=== PATIENT | female | born 1965 | race Caucasian/White ===

== ENCOUNTER 2020-03-08 14:29 | Emergency (ER) | payer OTHER ==
--- NOTE | 2020-03-08 14:56 | ED ---
Lower Extremity Injury HPI - General Chief Complaint: Extremity Injury, Lower Stated Complaint: Poss blood clot,left leg Time Seen by Provider: 03/08/20 14:40 Source: patient Mode of arrival: ambulatory Limitations: no limitations - History of Present Illness Initial Comments: 54-year-old female patient presents to the emergency department today for eval uation of left lower leg and ankle pain and swelling. Patient states a few days ago she was pushing something heavy when she felt something pop in the back of her calf. States she did have some discomfort intermittently with this but it wasn't bothering her too much. Patient states over the last 24-48 hours she has developed increased pain and swelling over the lateral aspect of her left foot s he is also developed bruising over the porras. She denies any use of anticoagulant or antiplatelet medications. Denies history of DVT. She states the pain has been so bad at night that she is unable to sleep. Patient denies any headache, neck pain, back pain, chest pain, shortness of breath, dizziness, weakness, abdominal pain, nausea, vomiting, or difficulties with bowel movements or urination. - Related Data Previous Rx's Medication Instructions Recorded Ibuprofen [Motrin] 600 mg PO Q8HR PRN #30 tab 03/08/20 Allergies Allergy/AdvReac Type Severity Reaction Status Date / Time No Known Allergies Allergy Verified 03/08/20 14:31 Review of Systems ROS Statement: Those systems with pertinent positive or pertinent negative responses have been documented in the HPI. ROS Other: All systems not noted in ROS Statement are negative. Past Medical History Past Medical History: Diabetes Mellitus, Hyperlipidemia, Hypertension History of Any Multi-Drug Resistant Organisms: None Reported Past Surgical History: No Surgical Hx Reported Past Psychological History: Anxiety Smoking Status: Current every day smoker Past Alcohol Use History: None Reported Past Drug Use History: None Reported General Exam Limitations: no limitations General appearance: alert, in no apparent distress, other (Physical well- developed, well-nourished adult female patient in no acute distress. Vital signs upon presentation are temperature 97.9F, pulse 92, respirations 18, blood pressure 111/65, pulse ox 99% on room air.) Respiratory exam: Present: normal lung sounds bilaterally. Absent: respiratory distress, wheezes, rales, rhonchi, stridor Cardiovascular Exam: Present: regular rate, normal rhythm, normal heart sounds. Absent: systolic murmur, diastolic murmur, rubs, gallop, clicks Extremities exam: Present: full ROM, normal capillary refill, other (There is ecchymosis noted over the left lower leg. Tenderness and soft tissue swelling noted over the left lateral malleolus. There is full range of motion at the ankle joint. Negative Bentley test. Skins otherwise pink, warm, dry. Cap refills less than 3 seconds. Pedal pulses 2+.). Absent: normal inspection, tenderness, pedal edema, joint swelling, calf tenderness Neurological exam: Present: alert, oriented X3, CN II-XII intact Psychiatric exam: Present: normal affect, normal mood Skin exam: Present: warm, dry, intact, normal color. Absent: rash Course Vital Signs 03/08/20 14:32 Temperature 97.9 F Pulse Rate 92 Respiratory 18 Rate Blood Pressure 111/65 O2 Sat by Pulse 99 Oximetry Medical Decision Making - Medical Decision Making 54-year-old female patient presents to the emergency department today for evaluation of left calf and leg pain. Physical examination did reveal ecchymosis noted over the anterior left porras, soft tissue swelling surrounding the ankle. Neurovascular status intact. Pulses are intact. Ultrasound was obtained and showed no evidence for DVT but there was evidence for intramuscular hematoma. X-ray was negative for acute fracture. I did discuss findings results with the patient. She'll be placed in an Ankit wrap. She is instructed to apply ice and elevate the leg. She is given ibuprofen for pain control. She is instructed follow with orthopedics if her symptoms do not improve. She is instructed to follow-up with her primary care physician for recheck in 1-2 days. Return parameters were discussed in detail. She verbalizes understanding and agrees with this plan. - Radiology Data Radiology results: report reviewed, image reviewed 3 views of left ankle obtained. Report is reviewed in its entirety. Impression by Dr. Pace shows mild soft tissue swelling. No fracture. Ultrasound of the left lower extremity is obtained. Report was reviewed in its entirety. Impression by Dr. Pace shows no evidence of deep vein thrombosis in the left leg. Is a complex elongated fluid collection the calf consistent with intramuscular hematoma. Disposition Clinical Impression: Intramuscular hematoma, Leg pain Disposition: HOME SELF-CARE Condition: Good Instructions (If sedation given, give patient instructions): Hematoma (ED) Additional Instructions: Use Ankit wrap for compression and support. Take medication as needed for pain control. Follow-up with orthopedic brace maker for further evaluation in 1-2 days. Return to the emergency department immediately for any new, worsening, or concerning symptoms. Prescriptions: Ibuprofen [Motrin] 600 mg PO Q8HR PRN #30 tab PRN Reason: Pain Is patient prescribed a controlled substance at d/c from ED?: No Referrals: Iglesia Bray DO [Primary Care Provider] - 1-2 days Shen Beasley DO [Doctor of Osteopathic Medicine] - 1-2 days Time of Disposition: 15:57
--- NOTE | 2020-03-08 15:23 | XR ---
EXAMINATION TYPE: XR ankle complete LT DATE OF EXAM: 03/08/2020 COMPARISON: NONE HISTORY: Pain TECHNIQUE: 3 views FINDINGS: Ankle mortise is anatomic. I see no fracture nor dislocation. There is mild soft tissue swe lling over the medial malleolus. There is no evidence of focal bone destruction. IMPRESSION: Mild soft tissue swelling. No fracture.
--- NOTE | 2020-03-08 15:55 | US ---
EXAMINATION TYPE: US venous doppler duplex LE DATE OF EXAM: 03/08/2020 3:31 PM COMPARISON: NONE CLINICAL HISTORY: Left leg pain and swelling. pain after injury left calf SIDE PERFORMED: Left TECHNIQUE: The lower extremity deep venous system is examined utilizing real time linear array sonog valentine with graded compression, doppler sonography and color-flow sonography. VESSELS IMAGED: Common Femoral Vein Deep Femoral Vein Greater Saphenous Vein * Femoral Vein Popliteal Vein Small Saphenous Vein * Proximal Calf Veins (* superficial vessels) Left Leg: Negative for DVT At the area of the patient's pain, left calf, there is a complex fluid collection measuring 6.7 x 0.9 x 4.3 cm IMPRESSION: No evidence of deep vein thrombosis in the left leg. There is complex elongated fluid col lection in the calf consistent with intramuscular hematoma.
[2020-03-08] MEDS ORDERED: ACET/COD 300 MG/30 MG STARTER PACK 6 TAB BTL PO STA (15:57)
[2020-03-08 16:18] VITALS: BP 110/65; PULSE 78; RESP 20; TEMP 98.1
== END 2020-03-08 16:18 | disposition home or self-care (01) ==
LOC: EC 14:29
DX: S80.12XA Contusion of left lower leg, initial encounter (principal); E11.9 Type 2 diabetes mellitus without complications; I10 Essential (primary) hypertension; F17.200 Nicotine dependence, unspecified, uncomplicated; X50.9XXA Other and unspecified overexertion or strenuous movements or postures, initial encounter
CPT/HCPCS: 99284

== ENCOUNTER → 2020-11-06 | Outpatient (CLI) | payer OTHER ==
--- NOTE | 2020-11-06 09:32 | MR ---
EXAMINATION TYPE: MR knee RT wo con DATE OF EXAM: 11/06/2020 COMPARISON: X-ray 03/17/2020 HISTORY: Pain in right knee TECHNIQUE: Multiplanar, multisequence imaging of the right knee is performed without IV contrast. FINDINGS: MEDIAL MENISCUS: There is abnormal signal involving the posterior horn of the medial meniscus compati ble with a complex tear. Is abnormal fluid signal surrounding the peripheral margin of the meniscus a s well as the MCL. LATERAL MENISCUS: Linear signal in the posterior horn suggestive of simple linear tear. CRUCIATE LIGAMENTS: The anterior and posterior cruciate ligaments are intact and unremarkable. COLLATERAL LIGAMENTS: Lateral collateral ligament is intact. There is fluid surrounding the medial co llateral ligament with mild irregularity involving the medial collateral ligament. EXTENSOR MECHANISM: Visualized quadriceps and patellar tendons are intact. EFFUSION: No significant suprapatellar joint effusion. POPLITEAL CYST: No popliteal/park cyst. TRICOMPARTMENT SPACES: Mild narrowing of the medial compartment of knee joint and patellofemoral join t. BONE MARROW SIGNAL: No focal abnormal marrow signal is appreciated. IMPRESSION: 1. Complex tear posterior horn medial meniscus with grade 2 MCL sprain with partial tear. Meniscal ca psular separation in the differential diagnosis. 2. Simple linear tear posterior horn lateral meniscus
== END | disposition home or self-care (01) ==
LOC: RADMRIMAIN 08:24
PROVIDERS: ATTEND Orthopaedic Surgery
DX: M23.321 Other meniscus derangements, posterior horn of medial meniscus, right knee (principal); M23.351 Other meniscus derangements, posterior horn of lateral meniscus, right knee

== ENCOUNTER 2022-06-30 13:00 | Emergency (ER) | payer OTHER ==
[2022-06-30] MEDS ORDERED: methylPREDNISolone SOD SUCCI 125 MG/2 ML VIAL IM ONE (13:45)
[2022-06-30] MEDS ORDERED: KETOROLAC 15 MG/ML 1 ML VIAL IM STA (13:45)
--- NOTE | 2022-06-30 13:46 | ED ---
General Adult HPI - General Chief complaint: Extremity Injury, Lower Stated complaint: Right knee injury Time Seen by Provider: 06/30/22 13:28 Source: patient, RN notes reviewed Mode of arrival: ambulatory Limitations: physical limitation - History of Present Illness Initial comments: 57 female with no significant past medical history presents the emergency department with a chief complaint of right knee pain. She reports that she injured it somehow approximately 1 year and a half ago. Today she reports pain and swelling to the area. She denies any numbness, tingling, no weakness in the extremity. She's been taking Tylenol 600s with mild relief of her symptoms. - Related Data Previous Rx's Medication Instructions Recorded Ibuprofen [Motrin] 600 mg PO Q8HR PRN #30 tab 03/08/20 Ketorolac [Toradol] 10 mg PO Q8HR #15 tab 06/30/22 Allergies Allergy/AdvReac Type Severity Reaction Status Date / Time No Known Allergies Allergy Verified 06/30/22 13:25 Review of Systems ROS Statement: Those systems with pertinent positive or pertinent negative responses have been documented in the HPI. ROS Other: All systems not noted in ROS Statement are negative. Past Medical History Past Medical History: Diabetes Mellitus, Hyperlipidemia, Hypertension History of Any Multi-Drug Resistant Organisms: None Reported Past Surgical History: No Surgical Hx Reported Past Psychological History: Anxiety, Depression Smoking Status: Current every day smoker Past Alcohol Use History: None Reported Past Drug Use History: None Reported General Exam Limitations: physical limitation General appearance: alert, in no apparent distress Head exam: Present: atraumatic, normocephalic, normal inspection Eye exam: Present: normal appearance, PERRL, EOMI. Absent: scleral icterus, conjunctival injection, periorbital swelling ENT exam: Present: normal exam, mucous membranes moist Neck exam: Present: normal inspection. Absent: tenderness, meningismus, lymphadenopathy Respiratory exam: Present: normal lung sounds bilaterally. Absent: respiratory distress, wheezes, rales, rhonchi, stridor Cardiovascular Exam: Present: regular rate, normal rhythm, normal heart sounds. Absent: systolic murmur, diastolic murmur, rubs, gallop, clicks GI/Abdominal exam: Present: soft, normal bowel sounds. Absent: distended, tenderness, guarding, rebound, rigid Extremities exam: Present: normal inspection, full ROM, normal capillary refill. Absent: tenderness, pedal edema, joint swelling, calf tenderness Back exam: Present: normal inspection Neurological exam: Present: alert, oriented X3, CN II-XII intact Psychiatric exam: Present: normal affect, normal mood Skin exam: Present: warm, dry, intact, normal color. Absent: rash Course Vital Signs 06/30/22 06/30/22 13:22 14:56 Temperature 98.4 F 98.2 F Pulse Rate 78 86 Respiratory 18 16 Rate Blood Pressure 140/82 146/89 O2 Sat by Pulse 97 99 Oximetry Medical Decision Making - Medical Decision Making Was pt. sent in by a medical professional or institution (, INES, POWDER CUTTING OPERATOR, urgent care, hospital, or custodial...) When possible be specific @ -ow li Did you speak to anyone other than the patient for history (EMS, parent, family, police, friend...)? What history was obtained from this source @ -[No] Did you review nursing and triage notes (agree or disagree)? Why? @ -[I reviewed and agree with nursing and triage notes] Were old charts reviewed (outside hosp., previous admission, EMS record, old EKG, old radiological studies, urgent care reports/EKG's, custodial records)? Report findings @ -[No old charts were reviewed] Differential Diagnosis (chest pain, altered mental status, abdominal pain women, abdominal pain men, vaginal bleeding, weakness, fever, dyspnea, syncope, headache, dizziness, GI bleed, back pain, seizure, CVA, palpatations, mental health, musculoskeletal)? @ -[not applicable] EKG interpreted by me (3pts min.). @ -[As above] X-rays interpreted by me (1pt min.). @ -Right knee x-ray negative for any acute fracture or dislocation CT interpreted by me (1pt min.). @ -[None done] U/S interpreted by me (1pt. min.). @ -[None done] What testing was considered but not performed or refused? (CT, X-rays, U/S, labs)? Why? @ -[None] What meds were considered but not given or refused? Why? @ -[None] Did you discuss the management of the patient with other professionals (professionals i.e. , INES, POWDER CUTTING OPERATOR, lab, RT, psych nurse, neonatal social worker, executive producer promos, teacher, fisheries officer, window caser)? Give summary @ -[No] Was smoking cessation discussed for >3mins.? @ -[No] Was critical care preformed (if so, how long)? @ -[No] Were there social determinants of health that impacted care today? How? (Homelessness, low income, unemployed, alcoholism, drug addiction, transportation, low edu. Level, literacy, decrease access to med. care, [facility], rehab)? @ -[No] Was there de-escalation of care discussed even if they declined (Discuss DNR or withdrawal of care, Hospice)? DNR status @ -[No] What co-morbidities impacted this encounter? (DM, HTN, Smoking, COPD, CAD, Cancer, CVA, ARF, Chemo, Hep., AIDS, mental health diagnosis, sleep apnea, morbid obesity)? @ -[None] Was patient admitted / discharged? Hospital course, mention meds given and route, prescriptions, significant lab abnormalities, going to OR and other pertinent info. @ -Discharged. This is a 57-year-old female presents to the emergency department with right knee pain. Patient had a thorough history and physical exam performed heart rate regular rate and rhythm, lungs are clear to auscultation bilaterally. Abdomen is soft and non-tender, right knee is without market swelling or erythema. There is limited range of motion secondary to pain. X-rays were negative for any fracture dislocation. Patient was given Toradol and Solu-Medrol shot while in the ED. I discussed at length with the patient who verbalized understanding and is requesting discharge. Return precautions were discussed. Patient discharged in stable condition. Case discussed with Dr. Rollins who agrees with plan of care Undiagnosed new problem with uncertain prognosis? @ -[No] Drug Therapy requiring intensive monitoring for toxicity (Heparin, Nitro, Insulin, Cardizem)? @ -[No] Were any procedures done? @ -[No] Diagnosis/symptom? @ -Internal derrangement of R knee Acute, or Chronic, or Acute on Chronic? @ -acute Uncomplicated (without systemic symptoms) or Complicated (systemic symptoms)? @ -uncomplicated Side effects of treatment? @ -[No] Exacerbation, Progression, or Severe Exacerbation? @ -[No] Poses a threat to life or bodily function? How? (Chest pain, [place], [place], pneumonia, PE, COPD, DKA, ARF, appy, cholecystitis, CVA, Diverticulitis, Homicidal, Suicidal, threat to staff... and all critical care pts) @ -low likelihood Disposition Clinical Impression: Internal derangement of knee Disposition: HOME SELF-CARE Condition: Stable Instructions (If sedation given, give patient instructions): Knee Sprain (ED) Additional Instructions: Please return to the nearest emergency department if symptoms worsen or persist. Please elevate the leg while at home. He can apply ice and take Tylenol and Motrin for pain as needed. Prescriptions: Ketorolac [Toradol] 10 mg PO Q8HR #15 tab Is patient prescribed a controlled substance at d/c from ED?: No Referrals: Greg Jamison DO [Doctor of Osteopathic Medicine] - 1-2 days Iglesia Jones DO [Primary Care Provider] - 1-2 days Lesly Toscano NPC [Nurse Practitioner] - 1-2 days Fer Pierre MD [STAFF PHYSICIAN] - 1-2 days Time of Disposition: 14:36
--- NOTE | 2022-06-30 14:27 | XR ---
EXAMINATION TYPE: XR knee complete RT DATE OF EXAM: 06/30/2022 2:05 PM INDICATION: Patient age:Female; 57 years old; Reason for study: R knee pain; COMPARISON: None. TECHNIQUE: The Right knee(s) was examined in Frontal, lateral and oblique projections. FINDINGS: No evidence of any acute osseous pathology, or soft tissue swelling. Mild osteophyte form ation of the tibial plateau and patella. Small joint effusion is present. IMPRESSION: 1. No acute osseous pathology. 2. Mild tricompartmental osteoarthritic changes. 3. Small joint effusion. Consider MRI for further evaluation for internal soft tissue derangement.
[2022-06-30 14:58] VITALS: BP 146/89; PULSE 86; RESP 16; TEMP 98.2
== END 2022-06-30 14:58 | disposition home or self-care (01) ==
LOC: EC 13:00
DX: M23.91 Unspecified internal derangement of right knee (principal); I10 Essential (primary) hypertension; E11.9 Type 2 diabetes mellitus without complications; F41.9 Anxiety disorder, unspecified; F32.A Depression, unspecified; F17.200 Nicotine dependence, unspecified, uncomplicated
CPT/HCPCS: 73562; 99283; 96372 ×2; L1830; J2930; J1885

== ENCOUNTER 2024-06-19 12:06 | Emergency (ER) | payer OTHER ==
[2024-06-19] MEDS: KETOROLAC 15 MG/ML 1 ML VIAL IM STA (12:40)
--- NOTE | 2024-06-19 13:18 | ED ---
Extremity Problem HPI - General Chief complaint: Extremity Problem,Nontraumatic Stated complaint: right arm pain Time Seen by Provider: 06/19/24 12:50 Source: patient Mode of arrival: ambulatory Limitations: no limitations - History of Present Illness Initial comments: 59-year-old female presented to the ER for evaluation of right thumb/wrist pain. Patient states this has been ongoing for the past 2 weeks. She was seen by PCP and told she has a possible torn muscle/ligament and was instructed on conservative treatment options. She states over the past 3 days pain has been progressively worsening to the point where it is inhibiting her sleep. She states she is unable to lift simple objects like cup or other light materials due to the pain. She states pain did start on the dorsal aspect of her right hand it is now progressively traveling up to her mid forearm. Pain is made worse with certain movements of the wrist. At rest there is no pain. She has been taking Motrin 800 for pain control. She denies any injuries or traumas. Patient has no other complaints at this time. - Related Data Previous Rx's Medication Instructions Recorded Ibuprofen [Motrin] 600 mg PO Q8HR PRN #30 tab 03/08/20 Ketorolac [Toradol] 10 mg PO Q8HR #15 tab 06/30/22 Allergies Allergy/AdvReac Type Severity Reaction Status Date / Time No Known Allergies Allergy Verified 06/19/24 12:25 Review of Systems ROS Statement: Those systems with pertinent positive or pertinent negative responses have been documented in the HPI. ROS Other: All systems not noted in ROS Statement are negative. Past Medical History Past Medical History: Diabetes Mellitus, Hyperlipidemia, Hypertension History of Any Multi-Drug Resistant Organisms: None Reported Past Surgical History: No Surgical Hx Reported Past Psychological History: Anxiety, Depression Smoking Status: Current every day smoker Past Alcohol Use History: None Reported Past Drug Use History: None Reported General Exam Limitations: no limitations General appearance: alert, in no apparent distress Respiratory exam: Present: normal lung sounds bilaterally. Absent: respiratory distress, wheezes, rales, rhonchi, stridor Cardiovascular Exam: Present: regular rate, normal rhythm, normal heart sounds. Absent: systolic murmur, diastolic murmur, rubs, gallop, clicks Extremities exam: Present: normal inspection, full ROM, normal capillary refill (2+ right radial pulse.), other (There is no focal bony tenderness. No anatomical snuffbox tenderness. Pain with active range of motion of wrist and right thumb. Negative Tinel's test) Neurological exam: Present: alert, oriented X3, CN II-XII intact Skin exam: Present: warm, dry, intact, normal color. Absent: rash Course Vital Signs 06/19/24 12:21 Temperature 97.5 F L Pulse Rate 70 Respiratory 20 Rate Blood Pressure 156/92 O2 Sat by Pulse 95 Oximetry Medical Decision Making - Medical Decision Making Was pt. sent in by a medical professional or institution (, PA, TRAIN GATE ATTENDANT, urgent care, hospital, or correction...) When possible be specific @ -[No] Did you speak to anyone other than the patient for history (EMS, parent, family, police, friend...)? What history was obtained from this source @ -[No] Did you review nursing and triage notes (agree or disagree)? Why? @ -[I reviewed and agree with nursing and triage notes] Were old charts reviewed (outside hosp., previous admission, EMS record, old EKG, old radiological studies, urgent care reports/EKG's, correction records)? Report findings @ -[No old charts were reviewed] Differential Diagnosis (chest pain, altered mental status, abdominal pain women, abdominal pain men, vaginal bleeding, weakness, fever, dyspnea, syncope, headache, dizziness, GI bleed, back pain, seizure, CVA, palpatations, mental health, musculoskeletal)? @ -Differential Musculoskeletal: Muscular strain, contusion, ligament sprain, fracture, arthritis, septic arthritis, bursitis, cellulitis, muscle spasm, nerve compression, DVT, arterial occlusion, herpes zoster, electrolyte abnormality, tumor.... This is not meant to be in all inclusive list EKG interpreted by me (3pts min.). @ -[None done] X-rays interpreted by me (1pt min.). @ -[None done] CT interpreted by me (1pt min.). @ -[None done] U/S interpreted by me (1pt. min.). @ -[None done] What testing was considered but not performed or refused? (CT, X-rays, U/S, labs)? Why? @ -[None] What meds were considered but not given or refused? Why? @ -[None] Did you discuss the management of the patient with other professionals (professionals i.e. , PA, TRAIN GATE ATTENDANT, lab, RT, psych nurse, social media senior associate, food and beverage service manager, teacher, staff mine warfare officer, manager of case)? Give summary @ -[No] Was smoking cessation discussed for >3mins.? @ -[No] Was critical care preformed (if so, how long)? @ -[No] Were there social determinants of health that impacted care today? How? (Homelessness, low income, unemployed, alcoholism, drug addiction, transportation, low edu. Level, literacy, decrease access to med. care, senior care, rehab)? @ -[No] Was there de-escalation of care discussed even if they declined (Discuss DNR or withdrawal of care, Hospice)? DNR status @ -[No] What co-morbidities impacted this encounter? (DM, HTN, Smoking, COPD, CAD, Cancer, CVA, ARF, Chemo, Hep., AIDS, mental health diagnosis, sleep apnea, morbid obesity)? @ -[None] Was patient admitted / discharged? Hospital course, mention meds given and route, prescriptions, significant lab abnormalities, going to OR and other pertinent info. @ -[hospital course] Undiagnosed new problem with uncertain prognosis? @ -[No] Drug Therapy requiring intensive monitoring for toxicity (Heparin, Nitro, Insulin, Cardizem)? @ -[No] Were any procedures done? @ -[No] Diagnosis/symptom? @ -[default] Acute, or Chronic, or Acute on Chronic? @ -[default] Uncomplicated (without systemic symptoms) or Complicated (systemic symptoms)? @ -[default] Side effects of treatment? @ -[No] Exacerbation, Progression, or Severe Exacerbation? @ -[No] Poses a threat to life or bodily function? How? (Chest pain, [place], [place], pneumonia, PE, COPD, DKA, ARF, appy, cholecystitis, CVA, Diverticulitis, Homicidal, Suicidal, threat to staff... and all critical care pts) @ -[No] Disposition Clinical Impression: Wrist pain Disposition: HOME SELF-CARE Condition: Stable Instructions (If sedation given, give patient instructions): Wrist Injury (ED) Additional Instructions: I recommend a thumb spica splint and [id number] Voltaren ointment along with continued use of ibuprofen and Tylenol for pain. Follow-up with PCP. Return to the ER for any new or worsening concerns. Is patient prescribed a controlled substance at d/c from ED?: No Referrals: Iglesia Jones DO [Primary Care Provider] - 1-2 days Time of Disposition: 13:46
--- NOTE | 2024-06-19 13:27 | XR ---
EXAMINATION TYPE: XR hand complete RT, XR wrist complete RT DATE OF EXAM: 06/19/2024 1:17 PM COMPARISON: None. CLINICAL INDICATION: Female, 59 years old with history of thumb/distal radius pain, pain TECHNIQUE: XR hand complete RT, XR wrist complete RT XX views were obtained. FINDINGS: There is no acute fracture/dislocation evident. The joint spaces appear within normal limits. The ov erlying soft tissue appears unremarkable. IMPRESSION: No acute fracture or dislocation. [facility], , 06/19/2024 1:25 PM
[2024-06-19 14:00] VITALS: BP 141/89; PULSE 68; RESP 16; TEMP 98
== END 2024-06-19 13:58 | disposition home or self-care (01) ==
LOC: EC 12:06
DX: M25.531 Pain in right wrist (principal); F17.200 Nicotine dependence, unspecified, uncomplicated
CPT/HCPCS: 73110; 73130; 99283; 96372; J1885